=== PATIENT | male | born 1985 ===

== ENCOUNTER 2017-01-05 16:18 | Emergency (ER) | payer OTHER ==
[2017-01-05 16:32] VITALS: BP 130/87; PULSE 78; RESP 20; TEMP 97.8; O2SAT 99
[2017-01-05] MEDS ORDERED: cefTRIAXone (Rocephin) 250 mg Inj IM ONE (16:55)
[2017-01-05] MEDS ORDERED: cefTRIAXone (Rocephin) 250 mg Inj ONE (16:58)
--- NOTE | 2017-01-05 17:02 | ED PDOC ---
HPI: General Adult Time Seen by Provider: 01/05/17 16:50 Chief Complaint (Nursing): Abnormal Skin Integrity Chief Complaint (Provider): medical evaluation History Per: Patient History/Exam Limitations: no limitations Onset/Duration Of Symptoms: Other (no symptoms) Have you had recent travel within the past 21 days to any of the following countries: [place], [place], [place] or [place]?: No Additional Complaint(s): Ahsan Willams is a 31 year old male, with no previous medical history, who presents to the ED for medical evaluation after his sexual partner informed him she had contracted an STD. Pt reports having intercourse with this person 1 week ago with no protection. Pt wants to be evaluated for any possible STD. Pt denies any rashes, testicular pain, lesions, testicular swelling or urinary symptoms. Pt denies any active medical complaints at this time. Pt reports partner was treated with cirpo and in IM injection in the buttock. Pt is requesting to be prophylactically treated while waiting for lab results. PMD: none provided Past Medical History Reviewed: Historical Data, Nursing Documentation, Vital Signs Vital Signs: Last Vital Signs Temp 97.8 F 01/05/17 16:29 Pulse 78 01/05/17 16:29 Resp 20 01/05/17 16:29 BP 130/87 01/05/17 16:29 Pulse Ox 99 01/05/17 17:05 - Medical History PMH: Asthma - Family History Family History: States: Unknown Family Hx - Immunization History Hx Tetanus Toxoid Vaccination: No Hx Influenza Vaccination: No Hx Pneumococcal Vaccination: No - Allergies Allergies/Adverse Reactions: Allergies Allergy/AdvReac Type Severity Reaction Status Date / Time No Known Allergies Allergy Verified 01/05/17 16:22 Review of Systems ROS Statement: Except As Marked, All Systems Reviewed And Found Negative Genitourinary Male: Negative for: Dysuria, Frequency, Incontinence, Hematuria, Penile Discharge, Scrotal Pain, Rash, Penile Pain Physical Exam - Reviewed Nursing Documentation Reviewed: Yes Vital Signs Reviewed: Yes - Physical Exam Appears: Positive for: Well, Non-toxic, No Acute Distress Neurologic/Psych: Positive for: Alert, Oriented - ECG O2 Sat by Pulse Oximetry: 99 (RA) Pulse Ox Interpretation: Normal Medical Decision Making Medical Decision Making: Initial ImpressionL STD check with prophylactic treatment pending results Initial Plan: * rochephin * azithromycin * Chlamydia/GC RNA Scribe Attestation: Documented by Leila Ying, acting as a scribe for Arti Richards PA-C. Provider Scribe Attestation: All medical record entries made by the Scribe were at my direction and personally dictated by me. I have reviewed the chart and agree that the record accurately reflects my personal performance of the history, physical exam, medical decision making, and the department course for this patient. I have also personally directed, reviewed, and agree with the discharge instructions and disposition. Disposition - Clinical Impression Clinical Impression: STD exposure - Patient ED Disposition Is Patient to be Admitted: No Counseled Patient/Family Regarding: Studies Performed, Diagnosis, Need For Followup - Disposition Disposition: Routine/Home Disposition Time: 17:10 Condition: STABLE Instructions: Cervicitis (ED), Chlamydia (ED), Sexually Transmitted Diseases ( ED), Safe Sex (ED), Condom Use (ED)
== END 2017-01-05 17:51 | disposition home or self-care (01) ==
LOC: H.ER 16:18 → MERGE 16:18 → EDBD 16:18 → H.ER 17:51
DX: Z20.2 Contact with and (suspected) exposure to infections with a predominantly sexual mode of transmission (principal)